=== PATIENT | male | born 1955 | race Caucasian/White ===

== ENCOUNTER 2022-04-30 10:42 | Outpatient (CLI) | payer OTHER, SELFPAY ==
--- NOTE | ~2022-04-30 | XR_ITS ---
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 TECHNIQUE: Water-soluble contrast was gravity-infused through the patient's Aburto catheter. Multiple fluoroscopic images were obtained. Fluoroscopy exposure time was 0.7 minutes. The total number of esa ges was 15. COMPARISON: None. FINDINGS: There is extraluminal leakage of contrast at the prostatic urethra. IMPRESSION: 1. Extraluminal leakage of contrast at the prosthetic urethra. Reviewed, dictated and finalized at location A.
== END 2022-04-30 10:43 | disposition home or self-care (01) ==
LOC: ANHIMG 10:48
PROVIDERS: PCP Family Medicine; Visit Provider Urology
DX: C61 Malignant neoplasm of prostate (principal)
CPT/HCPCS: 51600; 74430; Q9967

== ENCOUNTER 2022-05-07 11:00 | Outpatient (CLI) | payer OTHER, SELFPAY ==
--- NOTE | ~2022-05-07 | XR_ITS ---
EXAMINATION: CYSTOGRAM DATE: 05/07/2022 11:46 INDICATION: Follow-up bladder leak post prostatectomy. TECHNIQUE: Initial loss prevention representative radiograph of the pelvis was performed. There was retrograde administration of Omnipaque 350 mixed with saline contrast into patient's existing Aburto catheter. A total of 11 fl uoroscopic images of the pelvis were obtained. A postvoid radiograph of the pelvis was also obtained. Fluoroscopy exposure time was 1.0 minutes. FINDINGS: Again seen is extraluminal leakage of contrast which appears to arise along the posterior margin of t he region of the prostatic urethra/prostatectomy bed. The defect appears significantly smaller than o n the prior study with a lesser amount of contrast extravasation. IMPRESSION: Persistent but significantly improved leak posteriorly at the prostatectomy bed. Reviewed, dictated and finalized at location A. FORGER HELPER IMPRESSION: Persistent but significantly improved leak posteriorly at the prostatectomy bed .
== END 2022-05-07 11:01 | disposition home or self-care (01) ==
PROVIDERS: PCP Family Medicine; Visit Provider Urology
DX: C61 Malignant neoplasm of prostate (principal)
CPT/HCPCS: 51600; 74430; Q9967

== ENCOUNTER 2022-05-13 10:46 | Outpatient (CLI) | payer OTHER, SELFPAY ==
--- NOTE | ~2022-05-13 | XR_ITS ---
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 TECHNIQUE: Water-soluble contrast was gravity-infused through the patient's Aburto catheter. Multiple fluoroscopic images were obtained. Fluoroscopy exposure time was 0.3 minutes. The total number of esa ges was 13. COMPARISON: Cystogram 04/30/2022, 05/07/2022 FINDINGS: There is no extraluminal leakage of contrast. No ureteral reflux. IMPRESSION: 1. No extraluminal leakage of contrast. Reviewed, dictated and finalized at location A. NUE FIELD AUDITOR
== END 2022-05-13 10:47 | disposition home or self-care (01) ==
PROVIDERS: PCP Family Medicine; Visit Provider Nurse Practitioner
DX: C61 Malignant neoplasm of prostate (principal)
CPT/HCPCS: 51600; 74430; Q9967